=== PATIENT | female | born 1990 | race Caucasian/White ===

== ENCOUNTER 2017-03-03 14:00 | Observation (INO) | payer OTHER ==
[~2017-03-03 14:00] MED LIST: FIBER500 M1 PO; IBUPROFEN800 M1 PO; PRENATAL VITAM1 EAC5 PO; TRIPNIP TOP
[2017-03-03] MEDS ORDERED: FIBER500 M1 PO (17:32)
[2017-03-03] MEDS ORDERED: AUGMENTIN 875-1 EAC2 PO (17:33)
[2017-03-03] MEDS ORDERED: PROAIR HFA8.5 GM INH (19:50)
[2017-03-03] MEDS ORDERED: CEFDINIR300 M1 PO (19:50)
[2017-06-29] MEDS ORDERED: IBUPROFEN800 M1 PO (10:53)
== END 2017-03-03 15:03 | disposition still patient (30) ==
LOC: LDR 14:00
PROVIDERS: ADMIT Obstetrics & Gynecology
DX: O99.89 Other specified diseases and conditions complicating pregnancy, childbirth and the puerperium (principal); R06.02 Shortness of breath; Z3A.23 23 weeks gestation of pregnancy; Z98.890 Other specified postprocedural states

== ENCOUNTER 2017-03-03 15:12 | Emergency (ER) | payer OTHER ==
[2017-03-03] MEDS ORDERED: FIBER500 M1 PO (17:32)
[2017-03-03] MEDS ORDERED: AUGMENTIN 875-1 EAC2 PO (17:33)
[2017-03-03] MEDS ORDERED: CEFDINIR300 M1 PO (19:50)
[2017-03-03] MEDS ORDERED: PROAIR HFA8.5 GM INH (19:50)
[2017-06-29] MEDS ORDERED: IBUPROFEN800 M1 PO (10:53)
== END 2017-03-03 20:08 ==
LOC: EDMED 15:12
DX: J18.9 Pneumonia, unspecified organism (principal)
CPT/HCPCS: J0696